=== PATIENT | male | born 1985 | race Caucasian/White ===

== ENCOUNTER 2021-07-18 00:51 | Emergency (ER) | payer OTHER ==
[~2021-07-18] VITALS: Ht 172.7 cm; Wt 81.8 kg
[~2021-07-18 00:51] MED LIST: LORTAB 5/500 501 TAB PO; NO HOME MEDICATIONS
[2021-07-18] MEDS ORDERED: FLEXERIL 1010 MG/TAB PO (01:39)
[2021-07-18 02:04] VITALS: BP 144/78; PULSE 83; TEMP 98.4
== END 2021-07-18 01:50 | disposition home or self-care (01) ==
LOC: COL.ER 00:51
DX: S16.1XXA Strain of muscle, fascia and tendon at neck level, initial encounter (principal); S39.012A Strain of muscle, fascia and tendon of lower back, initial encounter; V48.5XXA Car driver injured in noncollision transport accident in traffic accident, initial encounter